=== PATIENT | female | born 1985 | race American Indian/Alaskan Native ===

== ENCOUNTER 2020-08-18 17:40 | Outpatient (CLI) | payer MEDICAID ==
[2020-08-18 17:57] VITALS: BP 116/71
[2020-08-18 18:11] LABS: Bacteria,Urine 1+ /HPF (Negative); Bilirubin,Urine NEG (Negative); Blood,Urine NEG (Negative); Color,Urine Straw (Yellow); Hyaline Casts,Urine 1 /LPF; Protein,Urine <15 mg/dL mg/dL (Negative); Urobilinogen,Urine < 2.0 mg/dL (<2.0)
[2020-08-18] MEDS ORDERED: LACTATED RINGERS 500 ML IV ONE (18:51)
[2020-08-18] MEDS ORDERED: BUTORPHANOL 2 MG/1 ML INJ IV PRN (18:56)
[2020-08-18] MEDS ORDERED: TERBUTALINE 1 MG/1 ML INJ SUB-Q PRN (19:49)
[2020-08-18] MEDS ORDERED: ONDANSETRON 4 MG/2 ML INJ IV ONE (20:05)
[2020-08-18] MEDS ORDERED: ACETAMINOPHEN 325 MG TAB PO ONE (20:05)
[2020-08-18] MEDS ORDERED: LACTATED RINGERS 1,000 ML IV ONE (20:07)
== END 2020-08-18 21:30 | disposition home or self-care (01) ==
LOC: TRG 17:40 → APU 17:42 → TRG 21:30
PROVIDERS: ATTEND Obstetrics & Gynecology
DX: O26.893 Other specified pregnancy related conditions, third trimester (principal); R10.30 Lower abdominal pain, unspecified; O47.03 False labor before 37 completed weeks of gestation, third trimester; Z3A.32 32 weeks gestation of pregnancy
CPT/HCPCS: 59025; 81001; 96361; 96365; 96372; J2405; J3105; J7120; 96360; 96374